=== PATIENT | male | born 1945 | race Caucasian/White ===

== ENCOUNTER 2017-12-22 16:07 | Inpatient (IN) | payer MEDICARE, OTHER ==
[~2017-12-22] VITALS: Ht 182.9 cm; Wt 138.1 kg
[2017-12-22] MEDS ORDERED: metoprolol tartrate 1mg/ml inj IV ONE ×2 (16:25→17:45)
[2017-12-22 16:46] LABS: BASOPHILS # (AUTO) 0.1 X10'3 (0-0.2); BASOPHILS % (AUTO) 0.6 % (0-1); EOSINOPHILS # (AUTO) 0.2 X10'3 (0-0.9); EOSINOPHILS % (AUTO) 1.6 % (0-6); HEMATOCRIT 41.6 % (42.0-52.0); HEMOGLOBIN 14.7 g/dl (14.0-17.9); LYMPHOCYTES # (AUTO) 3.2 X10'3 (1.1-4.8); LYMPHOCYTES % (AUTO) 30.6 % (21-51); MEAN CORPUSCULAR HEMOGLOBIN 33.5 PG (27.0-31.0); MEAN CORPUSCULAR HGB CONC 35.3 % (33.0-36.5); MEAN PLATELET VOLUME 8.6 FL (7.4-10.4); MONOCYTES # (AUTO) 0.7 X10'3 (0-0.9); MONOCYTES % (AUTO) 6.9 % (2-12); NEUTROPHILS # (AUTO) 6.3 X10'3 (1.8-7.7); NEUTROPHILS % (AUTO) 60.3 % (42-75); PLATELET COUNT 244 X10'3 (140-440); RED BLOOD COUNT 4.38 X10'6 (4.70-6.10); RED CELL DISTRIBUTION WIDTH 12.5 % (11.5-14.5); WHITE BLOOD COUNT 10.4 X10'3 (4.5-11.0)
[2017-12-22 16:55] LABS: ALANINE AMINOTRANSFERASE 29 U/L (12-78); ALBUMIN 3.8 G/DL (3.4-5.0); ALKALINE PHOSPHATASE 94 IU/L (46-116); ANION GAP 10 (8-16); ASPARTATE AMINO TRANSFERASE 22 U/L (10-37); BILIRUBIN,TOTAL 0.3 MG/DL (0.1-1.0); BLOOD UREA NITROGEN 16 MG/DL (7-18); BUN/CREATININE RATIO 13.9 (5.4-32.0); CALCIUM 9.2 MG/DL (8.5-10.1); CHLORIDE 101 MMOL/L (99-107); CREATININE 1.15 MG/DL (0.60-1.10); GLUCOSE 103 MG/DL (70-104); POTASSIUM 3.4 MMOL/L (3.5-5.1); SODIUM 137 MMOL/L (135-145); TOTAL CARBON DIOXIDE 26.2 MMOL/L (24-32); TOTAL PROTEIN 7.7 G/DL (6.4-8.2); eGFR 63 ML/MIN
[2017-12-22] MEDS ORDERED: verapamil 2.5 mg/ml inj IV ONE (16:55)
[2017-12-22 16:57] LABS: D-DIMER 0.29 MG/L FEU (0-0.50); PROTHROMBIN TIME 10.5 SECONDS (9.0-12.0)
[2017-12-22 17:02] LABS: MAGNESIUM 1.7 MG/DL (1.5-2.4)
[2017-12-22] MEDS ORDERED: normal saline 1000ML IV soln IVB ONE (17:15)
[2017-12-22] MEDS ORDERED: diltiazem 5mg/ml 5ml inj. IV ONE (18:40)
[2017-12-22] MEDS: magnesium 1gm/100ml D5W IVPB 100 ML IV SCH ×2 (19:00→19:10)
[2017-12-22] MEDS ORDERED: diltiazem-NS 100mg/100ml 100 ML IV SCH (19:10)
[2017-12-22] MEDS ORDERED: potassium Cl oral solution 20 MEQ/15 ML PO ONE (20:15)
[2017-12-22] MEDS ORDERED: normal saline 1000ml 1,000 ML IV ONE (20:45)
[2017-12-22] MEDS ORDERED: amiodarone 50MG/ML inj IV ONE (21:30)
[2017-12-22] MEDS ORDERED: magnesium hydroxide 30ml (MOM) UD suspension PO PRN (21:45)
[2017-12-22] MEDS ORDERED: ondansetron/PF 4mg/2ml inj IV PRN (21:45)
[2017-12-22] MEDS ORDERED: acetaminophen 325mg tablet PO PRN (21:45)
[2017-12-22] MEDS ORDERED: mag hydrox/Alum hydrox/simeth 30ml oral suspension PO PRN (21:45)
[2017-12-22] MEDS ORDERED: AMLO-94 PO (21:50)
[2017-12-22] MEDS ORDERED: HYDR25TA4 PO (21:50)
[2017-12-22] MEDS ORDERED: HYDR-565 PO (21:50)
[2017-12-22] MEDS ORDERED: INDO25CA18 PO (21:50)
[2017-12-22] MEDS ORDERED: CHOL100046 PO (21:50)
[2017-12-22] MEDS ORDERED: METO-539 PO (21:50)
[2017-12-22] MEDS ORDERED: COLC0.6T69 PO (21:50)
[2017-12-22] MEDS ORDERED: ASPI-1265 PO (21:50)
[2017-12-22] MEDS ORDERED: MULT-570 PO (21:50)
[2017-12-22] MEDS ORDERED: CYAN-19 PO (21:50)
[2017-12-22] MEDS ORDERED: VENL75TA4 PO (21:50)
[2017-12-22] MEDS ORDERED: amiodarone 200mg tablet PO ONE (21:55)
[2017-12-22] MEDS ORDERED: HYDROcodone/acetaminophen 10/325mg tab PO PRN (22:00)
[2017-12-22] MEDS: amiodarone/D5 360MG/200ML BAG 200 ML IV SCH (22:22)
[2017-12-22 23:00] VITALS: BP 129/54
[2017-12-22 23:42] LABS: HEMOGLOBIN A1C 6.2 % (4.5-6.2)
[2017-12-23] VITALS (11 sets, daily range): BP systolic 101–136; BP diastolic 71–92
[2017-12-23] MEDS: amiodarone/D5 360MG/200ML BAG 200 ML IV SCH ×2 (04:29→10:33)
[2017-12-23 06:10] LABS: BASOPHILS % (AUTO) 0.2 % (0-1); EOSINOPHILS # (AUTO) 0.3 X10'3 (0-0.9); EOSINOPHILS % (AUTO) 3.3 % (0-6); HEMATOCRIT 42.5 % (42.0-52.0); HEMOGLOBIN 14.7 g/dl (14.0-17.9); LYMPHOCYTES # (AUTO) 2.8 X10'3 (1.1-4.8); LYMPHOCYTES % (AUTO) 30.1 % (21-51); MEAN CORPUSCULAR HGB CONC 34.5 % (33.0-36.5); MEAN CORPUSCULAR VOLUME 95.4 FL (78-98); MEAN PLATELET VOLUME 9.2 FL (7.4-10.4); MONOCYTES # (AUTO) 0.7 X10'3 (0-0.9); MONOCYTES % (AUTO) 7.3 % (2-12); NEUTROPHILS # (AUTO) 5.4 X10'3 (1.8-7.7); NEUTROPHILS % (AUTO) 59.1 % (42-75); PLATELET COUNT 208 X10'3 (140-440); RED BLOOD COUNT 4.45 X10'6 (4.70-6.10); WHITE BLOOD COUNT 9.2 X10'3 (4.5-11.0)
[2017-12-23 06:25] LABS: ALANINE AMINOTRANSFERASE 34 U/L (12-78); ALBUMIN 3.4 G/DL (3.4-5.0); ALBUMIN/GLOBULIN RATIO 0.9 (1.1-1.5); ALKALINE PHOSPHATASE 72 IU/L (46-116); ANION GAP 8 (8-16); ASPARTATE AMINO TRANSFERASE 30 U/L (10-37); BILIRUBIN,TOTAL 0.4 MG/DL (0.1-1.0); BLOOD UREA NITROGEN 17 MG/DL (7-18); BUN/CREATININE RATIO 16.8 (5.4-32.0); CALCIUM 8.4 MG/DL (8.5-10.1); CHLORIDE 105 MMOL/L (99-107); CREATININE 1.01 MG/DL (0.60-1.10); GLUCOSE 104 MG/DL (70-104); POTASSIUM 3.5 MMOL/L (3.5-5.1); SODIUM 139 MMOL/L (135-145); TOTAL CARBON DIOXIDE 26.4 MMOL/L (24-32); eGFR 73 ML/MIN
[2017-12-23 06:34] LABS: CHOL/HDL RATIO 4.2 (0.00-4.99); CHOLESTEROL 123 MG/DL (0-200); HDL CHOLESTEROL 29 MG/DL (35-60); LDL CHOLESTEROL 79 MG/DL (50-100); TRIGLYCERIDES 129 MG/DL (20-135)
[2017-12-23] MEDS: aspirin 81mg tab.chew PO SCH (07:33)
[2017-12-23] MEDS: venlafaxine XR 75mg capsule (Q24H) PO SCH (07:33)
[2017-12-23] MEDS ORDERED: amLODIPine 5mg tablet PO SCH (08:00)
[2017-12-23] MEDS ORDERED: lisinopril 20mg tablet PO SCH (08:00)
[2017-12-23] MEDS ORDERED: enoxaparin 60mg/0.6ml syringe SUBCUT SCH (08:00)
[2017-12-23] MEDS: colchicine 0.6mg tablet PO SCH (09:41)
[2017-12-23] MEDS: sotalol 80mg tablet PO SCH ×2 (13:18→21:31)
[2017-12-24 03:00] VITALS: BP 105/78
[2017-12-24 05:12] LABS: BASOPHILS % (AUTO) 0.4 % (0-1); EOSINOPHILS # (AUTO) 0.3 X10'3 (0-0.9); EOSINOPHILS % (AUTO) 2.9 % (0-6); HEMATOCRIT 41.5 % (42.0-52.0); HEMOGLOBIN 14.3 g/dl (14.0-17.9); LYMPHOCYTES # (AUTO) 3.7 X10'3 (1.1-4.8); LYMPHOCYTES % (AUTO) 34.5 % (21-51); MEAN CORPUSCULAR HEMOGLOBIN 32.9 PG (27.0-31.0); MEAN CORPUSCULAR HGB CONC 34.4 % (33.0-36.5); MEAN CORPUSCULAR VOLUME 95.8 FL (78-98); MEAN PLATELET VOLUME 8.7 FL (7.4-10.4); MONOCYTES # (AUTO) 0.7 X10'3 (0-0.9); MONOCYTES % (AUTO) 6.9 % (2-12); NEUTROPHILS # (AUTO) 5.9 X10'3 (1.8-7.7); NEUTROPHILS % (AUTO) 55.3 % (42-75); PLATELET COUNT 231 X10'3 (140-440); RED BLOOD COUNT 4.33 X10'6 (4.70-6.10); RED CELL DISTRIBUTION WIDTH 13.2 % (11.5-14.5); WHITE BLOOD COUNT 10.7 X10'3 (4.5-11.0)
[2017-12-24 05:47] LABS: ALANINE AMINOTRANSFERASE 28 U/L (12-78); ALBUMIN 3.4 G/DL (3.4-5.0); ALKALINE PHOSPHATASE 66 IU/L (46-116); ANION GAP 8 (8-16); ASPARTATE AMINO TRANSFERASE 29 U/L (10-37); BILIRUBIN,TOTAL 0.6 MG/DL (0.1-1.0); BLOOD UREA NITROGEN 15 MG/DL (7-18); BUN/CREATININE RATIO 15.6 (5.4-32.0); CALCIUM 8.7 MG/DL (8.5-10.1); CHLORIDE 104 MMOL/L (99-107); CREATININE 0.96 MG/DL (0.60-1.10); GLUCOSE 95 MG/DL (70-104); POTASSIUM 3.6 MMOL/L (3.5-5.1); SODIUM 140 MMOL/L (135-145); TOTAL CARBON DIOXIDE 28.1 MMOL/L (24-32); TOTAL PROTEIN 6.9 G/DL (6.4-8.2); eGFR 77 ML/MIN
[2017-12-24 07:00] VITALS: BP 111/92
[2017-12-24] MEDS: aspirin 81mg tab.chew PO SCH (07:20)
[2017-12-24] MEDS: venlafaxine XR 75mg capsule (Q24H) PO SCH (07:21)
[2017-12-24] MEDS: sotalol 80mg tablet PO SCH ×2 (07:22→19:42)
[2017-12-24] MEDS: colchicine 0.6mg tablet PO SCH (07:22)
[2017-12-24 11:00] VITALS: BP 120/84
[2017-12-24 15:00] VITALS: BP 114/59
[2017-12-24 19:00] VITALS: BP 121/92
[2017-12-24] MEDS ORDERED: metoprolol tartrate 12.5mg (1/2 tablet) PO SCH (20:00)
[2017-12-24 23:00] VITALS: BP 118/72
[2017-12-25] VITALS (10 sets, daily range): BP systolic 94–127; BP diastolic 63–92
[2017-12-25] MEDS: sotalol 80mg tablet PO SCH ×3 (02:36→20:43)
[2017-12-25 06:15] LABS: BASOPHILS # (AUTO) 0.1 X10'3 (0-0.2); BASOPHILS % (AUTO) 0.5 % (0-1); EOSINOPHILS # (AUTO) 0.3 X10'3 (0-0.9); EOSINOPHILS % (AUTO) 3.2 % (0-6); HEMATOCRIT 43.8 % (42.0-52.0); HEMOGLOBIN 15.1 g/dl (14.0-17.9); LYMPHOCYTES # (AUTO) 3.3 X10'3 (1.1-4.8); LYMPHOCYTES % (AUTO) 31.5 % (21-51); MEAN CORPUSCULAR HEMOGLOBIN 33.1 PG (27.0-31.0); MEAN CORPUSCULAR HGB CONC 34.5 % (33.0-36.5); MEAN CORPUSCULAR VOLUME 96.2 FL (78-98); MEAN PLATELET VOLUME 9.6 FL (7.4-10.4); MONOCYTES # (AUTO) 0.7 X10'3 (0-0.9); MONOCYTES % (AUTO) 6.3 % (2-12); NEUTROPHILS # (AUTO) 6.1 X10'3 (1.8-7.7); NEUTROPHILS % (AUTO) 58.5 % (42-75); PLATELET COUNT 249 X10'3 (140-440); RED BLOOD COUNT 4.56 X10'6 (4.70-6.10); RED CELL DISTRIBUTION WIDTH 12.9 % (11.5-14.5); WHITE BLOOD COUNT 10.5 X10'3 (4.5-11.0)
[2017-12-25 06:30] LABS: ALANINE AMINOTRANSFERASE 34 U/L (12-78); ALBUMIN 3.4 G/DL (3.4-5.0); ALBUMIN/GLOBULIN RATIO 0.9 (1.1-1.5); ALKALINE PHOSPHATASE 68 IU/L (46-116); ANION GAP 7 (8-16); ASPARTATE AMINO TRANSFERASE 32 U/L (10-37); BILIRUBIN,TOTAL 0.7 MG/DL (0.1-1.0); BLOOD UREA NITROGEN 13 MG/DL (7-18); BUN/CREATININE RATIO 14.3 (5.4-32.0); CALCIUM 8.8 MG/DL (8.5-10.1); CHLORIDE 103 MMOL/L (99-107); CREATININE 0.91 MG/DL (0.60-1.10); GLUCOSE 98 MG/DL (70-104); POTASSIUM 3.6 MMOL/L (3.5-5.1); SODIUM 139 MMOL/L (135-145); TOTAL CARBON DIOXIDE 29.4 MMOL/L (24-32); eGFR 82 ML/MIN
[2017-12-25] MEDS: colchicine 0.6mg tablet PO SCH (07:39)
[2017-12-25] MEDS: apixaban 5mg tablet PO SCH ×2 (07:40→20:41)
[2017-12-25] MEDS: venlafaxine XR 75mg capsule (Q24H) PO SCH (07:40)
[2017-12-25] MEDS: aspirin 81mg tab.chew PO SCH (07:40)
[2017-12-25] MEDS ORDERED: diltiazem 30mg tablet PO ONE (08:00)
[2017-12-25] MEDS ORDERED: diltiazem 60mg tablet PO SCH (08:00)
[2017-12-25] MEDS ORDERED: diltiazem 30mg tablet PO SCH (08:00)
[2017-12-25] MEDS: diltiazem 30mg tablet PO SCH ×3 (08:00→20:42)
[2017-12-26 03:00] VITALS: BP 127/91
[2017-12-26 06:22] LABS: BASOPHILS % (AUTO) 0.3 % (0-1); EOSINOPHILS # (AUTO) 0.3 X10'3 (0-0.9); EOSINOPHILS % (AUTO) 3.4 % (0-6); HEMOGLOBIN 14.9 g/dl (14.0-17.9); LYMPHOCYTES # (AUTO) 2.5 X10'3 (1.1-4.8); LYMPHOCYTES % (AUTO) 30.5 % (21-51); MEAN CORPUSCULAR HEMOGLOBIN 32.9 PG (27.0-31.0); MEAN CORPUSCULAR HGB CONC 34.5 % (33.0-36.5); MEAN CORPUSCULAR VOLUME 95.3 FL (78-98); MEAN PLATELET VOLUME 8.9 FL (7.4-10.4); MONOCYTES # (AUTO) 0.7 X10'3 (0-0.9); MONOCYTES % (AUTO) 8.6 % (2-12); NEUTROPHILS # (AUTO) 4.7 X10'3 (1.8-7.7); NEUTROPHILS % (AUTO) 57.2 % (42-75); PLATELET COUNT 215 X10'3 (140-440); RED BLOOD COUNT 4.51 X10'6 (4.70-6.10); RED CELL DISTRIBUTION WIDTH 12.7 % (11.5-14.5); WHITE BLOOD COUNT 8.3 X10'3 (4.5-11.0)
[2017-12-26 07:00] VITALS: BP 110/68
[2017-12-26 07:17] LABS: ALANINE AMINOTRANSFERASE 49 U/L (12-78); ALBUMIN 3.4 G/DL (3.4-5.0); ALBUMIN/GLOBULIN RATIO 0.9 (1.1-1.5); ALKALINE PHOSPHATASE 65 IU/L (46-116); ANION GAP 8 (8-16); ASPARTATE AMINO TRANSFERASE 36 U/L (10-37); BILIRUBIN,TOTAL 0.7 MG/DL (0.1-1.0); BLOOD UREA NITROGEN 15 MG/DL (7-18); CALCIUM 8.5 MG/DL (8.5-10.1); CHLORIDE 103 MMOL/L (99-107); GLUCOSE 95 MG/DL (70-104); POTASSIUM 3.5 MMOL/L (3.5-5.1); SODIUM 139 MMOL/L (135-145); TOTAL CARBON DIOXIDE 27.8 MMOL/L (24-32); eGFR 74 ML/MIN
[2017-12-26] MEDS: venlafaxine XR 75mg capsule (Q24H) PO SCH (07:52)
[2017-12-26] MEDS: diltiazem 30mg tablet PO SCH (07:52)
[2017-12-26] MEDS: colchicine 0.6mg tablet PO SCH (07:52)
[2017-12-26] MEDS: apixaban 5mg tablet PO SCH (07:52)
[2017-12-26] MEDS: sotalol 80mg tablet PO SCH (07:54)
[2017-12-26] MEDS ORDERED: diltiazem 30mg tablet PO ONE (08:10)
[2017-12-26 11:00] VITALS: BP 113/80
[2017-12-26] MEDS ORDERED: diltiazem 30mg tablet PO SCH (13:00)
[2017-12-26 15:00] VITALS: BP 124/90
[2017-12-26] MEDS ORDERED: DILT120T3 PO (15:02)
[2017-12-26] MEDS ORDERED: SOTA80TA73 PO (15:02)
[2017-12-26] MEDS ORDERED: APIX5TAB3 PO (15:02)
== END 2017-12-26 16:10 | disposition home or self-care (01) | DRG 309 ==
LOC: ER 16:10 → ED HOLD 21:45 → PCU 3S 22:48
PROVIDERS: ADMIT Internal Medicine; ATTEND Family Medicine
DX: I48.91 Unspecified atrial fibrillation (principal); Z68.41 Body mass index [BMI] 40.0-44.9, adult; M19.90 Unspecified osteoarthritis, unspecified site; I10 Essential (primary) hypertension; E78.00 Pure hypercholesterolemia, unspecified; E78.5 Hyperlipidemia, unspecified; E66.9 Obesity, unspecified; F17.210 Nicotine dependence, cigarettes, uncomplicated; I48.92 Unspecified atrial flutter; M10.9 Gout, unspecified; Z96.653 Presence of artificial knee joint, bilateral; Z88.8 Allergy status to other drugs, medicaments and biological substances; Z79.899 Other long term (current) drug therapy; Z79.82 Long term (current) use of aspirin; Z71.6 Tobacco abuse counseling
CPT/HCPCS: 36415; 71045; 80053; 80061; 83036; 83735; 83880; 84443; 84484; 85025; 85379; 85610; 87070; 93005; 93306; 96361; 96365; 96368; 96375; 99285; J0282; J1650; J3490; J7030

== ENCOUNTER 2018-06-12 09:17 | Inpatient (IN) | payer MEDICARE, OTHER | END 2018-06-14 15:00 | disposition home or self-care (01) | LOC: ER 09:17 → ED HOLD 11:10 → MED 3N 13:35 | DX: I47.1 Supraventricular tachycardia (principal); N17.9 Acute kidney failure, unspecified; I45.10 Unspecified right bundle-branch block ==

== ENCOUNTER 2019-04-09 11:01 | Inpatient (IN) | payer MEDICARE, OTHER ==
[2019-04-08 18:00] VITALS: BP 129/84
[~2019-04-09] VITALS: Ht 182.9 cm; Wt 131.8 kg
[2019-04-09] VITALS (11 sets, daily range): BP systolic 108–131; BP diastolic 68–86
[~2019-04-09 11:01] MED LIST: APIX5TAB3 PO; CHOL100046 PO; COLC0.6T69 PO; CYAN-51 PO; HYDR-4353 PO; MULT-570 PO; SOTA80TA73 PO; VENL75CA61 PO
[2019-04-09] MEDS ORDERED: diltiazem 5mg/ml 5ml inj. IV ONE (11:20)
[2019-04-09 11:46] LABS: BASOPHILS # (AUTO) 0.1 X10'3 (0-0.2); EOSINOPHILS # (AUTO) 0.1 X10'3 (0-0.9)
[2019-04-09 11:48] LABS: BASOPHILS % (AUTO) 0.7 % (0-1); HEMOGLOBIN 15.7 g/dl (14.0-17.9); LYMPHOCYTES % (AUTO) 37.9 % (21-51); MEAN CORPUSCULAR HEMOGLOBIN 33.7 PG (27.0-31.0); MEAN CORPUSCULAR HGB CONC 35.7 g/dL (33.0-36.5); MEAN CORPUSCULAR VOLUME 94.6 FL (78-98); MEAN PLATELET VOLUME 9.1 FL (7.4-10.4); MONOCYTES # (AUTO) 1.1 X10'3 (0-0.9); MONOCYTES % (AUTO) 10.2 % (2-12); NEUTROPHILS # (AUTO) 5.3 X10'3 (1.8-7.7); NEUTROPHILS % (AUTO) 50.2 % (42-75); PLATELET COUNT 233 X10'3 (140-440); RED BLOOD COUNT 4.65 X10'6 (4.70-6.10); WHITE BLOOD COUNT 10.6 X10'3 (4.5-11.0)
[2019-04-09 11:57] LABS: PARTIAL THROMBOPLASTIN TIME 29 SECONDS (22-32)
[2019-04-09 12:03] LABS: ALANINE AMINOTRANSFERASE 31 U/L (12-78); ALBUMIN 3.8 G/DL (3.4-5.0); ALBUMIN/GLOBULIN RATIO 1.1 (1.1-1.5); ALKALINE PHOSPHATASE 73 IU/L (46-116); ANION GAP 11 (8-16); ASPARTATE AMINO TRANSFERASE 25 U/L (10-37); BILIRUBIN,TOTAL 0.5 MG/DL (0.1-1.0); BLOOD UREA NITROGEN 22 MG/DL (7-18); BUN/CREATININE RATIO 16.3 (5.4-32.0); CALCIUM 9.1 MG/DL (8.5-10.1); CHLORIDE 102 MMOL/L (99-107); CREATININE 1.35 MG/DL (0.60-1.10); GLUCOSE 95 MG/DL (70-104); POTASSIUM 3.8 MMOL/L (3.5-5.1); SODIUM 140 MMOL/L (135-145); TOTAL CARBON DIOXIDE 26.7 MMOL/L (24-32); TOTAL PROTEIN 7.4 G/DL (6.4-8.2); eGFR 52 ML/MIN
[2019-04-09 12:13] LABS: MAGNESIUM 1.8 MG/DL (1.5-2.4)
--- NOTE | 2019-04-09 13:17 | NUR ---
RELIEVING RN FOR BREAK, PT IS RESTING QUIETLY ON GURNEY, RESP EVEN AND UNLABORED, SKIN P/W/D, NO SOB, NO CHEST PAIN/DISCOMFORT, AFIB ON THE MONITOR 90S TO 120S
[2019-04-09] MEDS ORDERED: magnesium 2GM in 50ml NS 50 ML IV PRN (14:05)
[2019-04-09] MEDS ORDERED: acetaminophen 650mg rectal suppository RC PRN (14:05)
[2019-04-09] MEDS ORDERED: ondansetron/PF 4mg/2ml inj IV PRN (14:05)
[2019-04-09] MEDS ORDERED: diphenhydrAMINE 25mg capsule PO PRN (14:05)
[2019-04-09] MEDS ORDERED: magnesium 4gm in 100ml NS 100 ML IV PRN (14:05)
[2019-04-09] MEDS ORDERED: mag hydrox/Alum hydrox/simeth 30ml oral suspension PO PRN (14:05)
[2019-04-09] MEDS ORDERED: magnesium hydroxide 30ml (MOM) UD suspension PO PRN (14:05)
[2019-04-09] MEDS ORDERED: potassium CL 10mEq/100ml bag 100 ML IV PRN ×2 (14:05)
[2019-04-09] MEDS ORDERED: acetaminophen 325mg tablet PO PRN ×2 (14:05)
[2019-04-09] MEDS ORDERED: magnesium Cl slow-release 64mg tablet PO PRN (14:05)
[2019-04-09] MEDS ORDERED: potassium Cl 20 mEq SR tablet PO PRN ×2 (14:05)
[2019-04-09] MEDS ORDERED: bisacodyl 10mg suppository rectal RC PRN (14:05)
[2019-04-09] MEDS: diltiazem-NS 100mg/100ml 100 ML IV SCH (14:19)
[2019-04-09] MEDS ORDERED: METO50TA16 PO (14:31)
[2019-04-09] MEDS ORDERED: FLO0.4C PO (14:31)
--- NOTE | 2019-04-09 14:35 | NUR ---
Patient in room ED 3. I have received report from melissa castillo RN and had the opportunity to ask questions and assume patient care.
[2019-04-09 15:04] LABS: HEMOGLOBIN A1C 6.2 % (4.5-6.2)
[2019-04-09 15:08] LABS: D-DIMER < 0.19 MG/L FEU (0-0.50)
[2019-04-09] MEDS ORDERED: colchicine 0.6mg tablet PO PRN (16:05)
[2019-04-09] MEDS ORDERED: metoprolol succinate 25mg (24-HOUR) SR. Tablet PO STA (16:18)
[2019-04-09] MEDS ORDERED: digoxin 250mcg/ml 2ml ampule IV ONE (17:35)
[2019-04-09] MEDS ORDERED: HYDROcodone/acetaminophen 10/325mg tab PO PRN (17:55)
[2019-04-09] MEDS: normal saline 1000ml 1,000 ML IV SCH (18:00)
--- NOTE | 2019-04-09 18:00 | NUR ---
Patient in room MED 307. I have received report from Mariam CORNELIUS and had the opportunity to ask questions and assume patient care. Addendum: 04/09/19 at 1822 by Ingris Maxwell RN Patient in room MED 307. I have received report from Bhavna CORNELIUS and had the opportunity to ask questions and assume patient care.
[2019-04-09] MEDS: K and/or MAG REPLACEMENT MC SCH (19:18)
[2019-04-09] MEDS ORDERED: heparin, porcine 5000 units/ml vial SQ SCH (20:00)
[2019-04-09] MEDS ORDERED: sotalol 80mg tablet PO SCH (20:00)
[2019-04-09] MEDS: apixaban 5mg tablet PO SCH (20:18)
[2019-04-09] MEDS ORDERED: temazepam 15mg capsule PO PRN (21:00)
[2019-04-09 22:44] LABS: CLARITY,URINE CLEAR (Clear); COLOR,URINE YELLOW (Yellow); GLUCOSE, URINE NEGATIVE (Neg); KETONES,URINE NEGATIVE (Neg); LEUKOCYTE ESTERASE ,URINE NEGATIVE (Neg); NITRITES, URINE NEGATIVE (Neg); OCCULT BLOOD,URINE NEGATIVE (Neg); PROTEIN,URINE NEGATIVE (Neg); UROBILINOGEN,URINE 0.2 E.U/dL (0.2-1.0)
[2019-04-09 22:45] LABS: UA COLLECTION TYPE NON-SPECIFIED
--- NOTE | 2019-04-09 23:00 | NUR ---
MD called back, reduced diltiazem gtt to 5 mcg from 7.5, stated to give n3ext digoxin dose as ordered, monitor labs and perform ecg for troponin series as ordered. will monitor through night for any significant changes
[2019-04-09] MEDS: digoxin 250mcg/ml 2ml ampule IV SCH (23:19)
[2019-04-10] VITALS: BP 124/70
[2019-04-10 02:00] VITALS: BP 114/78
[2019-04-10 04:00] VITALS: BP 123/67
[2019-04-10] MEDS: normal saline 1000ml 1,000 ML IV SCH (04:12)
[2019-04-10] MEDS: diltiazem-NS 100mg/100ml 100 ML IV SCH (04:13)
[2019-04-10 04:18] LABS: BASOPHILS % (AUTO) 0.5 % (0-1); EOSINOPHILS # (AUTO) 0.1 X10'3 (0-0.9); EOSINOPHILS % (AUTO) 1.3 % (0-6); HEMATOCRIT 42.1 % (42.0-52.0); HEMOGLOBIN 14.7 g/dl (14.0-17.9); LYMPHOCYTES # (AUTO) 2.9 X10'3 (1.1-4.8); LYMPHOCYTES % (AUTO) 33.1 % (21-51); MEAN CORPUSCULAR HEMOGLOBIN 33.8 PG (27.0-31.0); MEAN CORPUSCULAR HGB CONC 34.8 g/dL (33.0-36.5); MEAN CORPUSCULAR VOLUME 97.1 FL (78-98); MEAN PLATELET VOLUME 9.2 FL (7.4-10.4); MONOCYTES # (AUTO) 0.9 X10'3 (0-0.9); MONOCYTES % (AUTO) 10.6 % (2-12); NEUTROPHILS # (AUTO) 4.8 X10'3 (1.8-7.7); NEUTROPHILS % (AUTO) 54.5 % (42-75); PLATELET COUNT 206 X10'3 (140-440); RED BLOOD COUNT 4.34 X10'6 (4.70-6.10); RED CELL DISTRIBUTION WIDTH 12.9 % (11.5-14.5); WHITE BLOOD COUNT 8.8 X10'3 (4.5-11.0)
[2019-04-10 04:27] LABS: ALANINE AMINOTRANSFERASE 28 U/L (12-78); ALBUMIN 3.7 G/DL (3.4-5.0); ALBUMIN/GLOBULIN RATIO 1.1 (1.1-1.5); ALKALINE PHOSPHATASE 65 IU/L (46-116); ANION GAP 9 (8-16); ASPARTATE AMINO TRANSFERASE 21 U/L (10-37); BILIRUBIN,TOTAL 0.6 MG/DL (0.1-1.0); BLOOD UREA NITROGEN 22 MG/DL (7-18); CALCIUM 8.5 MG/DL (8.5-10.1); CHLORIDE 103 MMOL/L (99-107); CHOL/HDL RATIO 4.7 (0.00-4.99); CHOLESTEROL 142 MG/DL (0-200); GLUCOSE 110 MG/DL (70-104); HDL CHOLESTEROL 30 MG/DL (35-60); LDL CHOLESTEROL 87 MG/DL (50-100); POTASSIUM 3.7 MMOL/L (3.5-5.1); SODIUM 139 MMOL/L (135-145); TOTAL CARBON DIOXIDE 26.8 MMOL/L (24-32); TOTAL PROTEIN 7.1 G/DL (6.4-8.2); TRIGLYCERIDES 234 MG/DL (20-135); eGFR 66 ML/MIN
[2019-04-10] MEDS: digoxin 250mcg/ml 2ml ampule IV SCH (05:30)
--- NOTE | 2019-04-10 06:26 | NUR ---
Problems reprioritized. Patient report given, questions answered & plan of care reviewed with Bhavna CORNELIUS.
--- NOTE | 2019-04-10 06:29 | NUR ---
Patient in room MED 307. I have received report from ASHLI Amado and had the opportunity to ask questions and assume patient care.
[2019-04-10 07:00] VITALS: BP 114/57
--- NOTE | 2019-04-10 07:31 | NUR ---
HAT [employer] PAGED 307: TOM - ECHO ORDERED. HR NO LONGER AFIB RVR. :D
[2019-04-10] MEDS: apixaban 5mg tablet PO SCH (07:55)
[2019-04-10] MEDS ORDERED: multivitamins, therapeutics tablet PO SCH (08:00)
[2019-04-10] MEDS ORDERED: tamsulosin 0.4mg capsule PO SCH (08:00)
[2019-04-10] MEDS ORDERED: metoprolol succinate 25mg (24-HOUR) SR. Tablet PO SCH (08:00)
[2019-04-10] MEDS ORDERED: vitamin D (cholecalciferol) 1,000 unit tablet PO SCH (08:00)
[2019-04-10] MEDS ORDERED: cyanocobalamin 500mcg tablet PO SCH (08:00)
[2019-04-10] MEDS: K and/or MAG REPLACEMENT MC SCH (08:02)
[2019-04-10] MEDS ORDERED: DIGO125T5 PO (10:38)
[2019-04-10] MEDS ORDERED: CARSR60C PO (10:38)
[2019-04-10] MEDS ORDERED: METO-395 PO (10:38)
--- NOTE | 2019-04-10 11:00 | NUR ---
reviewed all discharge instructions ,meds prescriptions phoned into [facility],pt aware all f/u appts,SL dc'd,site clear dc'd home with all belongs
[2019-04-10] MEDS ORDERED: digoxin 125mcg (0.125mg) tablet PO SCH (12:00)
== END 2019-04-10 12:31 | disposition home or self-care (01) | DRG 310 ==
LOC: ER 11:01 → ED HOLD 14:26 → MED 3N 15:00
PROVIDERS: ADMIT Family Medicine; ATTEND Family Medicine
DX: I48.91 Unspecified atrial fibrillation (principal); E03.9 Hypothyroidism, unspecified; E66.9 Obesity, unspecified; E78.00 Pure hypercholesterolemia, unspecified; E78.5 Hyperlipidemia, unspecified; G89.4 Chronic pain syndrome; I10 Essential (primary) hypertension; N40.0 Benign prostatic hyperplasia without lower urinary tract symptoms; M10.9 Gout, unspecified; K21.9 Gastro-esophageal reflux disease without esophagitis; J44.9 Chronic obstructive pulmonary disease, unspecified; Z79.899 Other long term (current) drug therapy; Z79.01 Long term (current) use of anticoagulants; Z87.891 Personal history of nicotine dependence; Z68.39 Body mass index [BMI] 39.0-39.9, adult
CPT/HCPCS: 36415; 71045; 80053; 80061; 81003; 82948; 83036; 83735; 83880; 84100; 84439; 84443; 84484; 85025; 85379; 85610; 85730; 87081; 93005; 93306; 96374; 97116; 97161; 97530; 99285; G0378; J1160; J3475; J3490; J7030